=== PATIENT | male | born 1950 | race Caucasian/White ===

== ENCOUNTER 2017-09-19 20:34 | Observation (INO) ==
[2017-09-19] MEDS ORDERED: Aspirin 81 MG TAB.CHEW PO ONE (21:24)
[2017-09-19] MEDS ORDERED: Nitroglycerin 0.4 MG TAB.SUBL SL ONE (21:24)
--- NOTE | 2017-09-19 21:31 | Emergency Department Note ---
Disposition Clinical Impression: Palpitations Chest pain Qualifiers: Chest pain type: precordial pain Qualified Code(s): R07.2 - Precordial pain Disposition: Admitted As Inpatient Condition: Good Time of Disposition: 23:04 General Adult HPI - General Chief complaint: ED Arrhythmia/Palpitations Stated complaint: "Chest Tightness/Feels Like Heart Skipping Beat" Time Seen by Provider: 09/19/17 20:59 Source: patient Limitations: no limitations Nursing Notes Reviewed: Yes Vital Signs Reviewed: Yes - History of Present Illness HPI Narrative: 67-year-old male presenting to the emergency department with chief complaint of palpitations and chest pain. Patient states today around 3:00 while he was driving his car he started feeling palpitations. He states he felt a pressure in his chest. It did not radiate. It was substernal. He did not get nauseous he did not vomit or have diaphoresis. Patient states in the he had palpitations and had a stress test which was within normal limits. He has not followed up with cardiology since. Patient does state he has hypertension. Patient states he has no other significant medical conditions. Patient states he is having 1 out of 10 pain at this time. Pain Scale: 2 - Related Data Home Medications Medication Instructions Recorded Confirmed Centrum Silver Tablet 12/29/16 Ibuprofen 12/29/16 Previous Rx's Medication Instructions Recorded Azithromycin [Zithromax] 1 applic PO DAILY #6 tablet 12/29/16 Allergies Allergy/AdvReac Type Severity Reaction Status Date / Time Penicillins [PCN] Allergy Rash Verified 09/19/17 20:56 All systems ED: reviewed and negative except as stated. Constitutional: Denies: fever, chills, weakness Eyes: Reports: as per HPI ENT ED: Reports: as per HPI Cardiovascular: Reports: chest pain, palpitations Respiratory: Denies: cough, dyspnea, wheezes Gastrointestinal: Denies: abdominal pain, nausea, vomiting Genitourinary: Reports: as per HPI Musculoskeletal: Reports: as per HPI Integumentary: Denies: rash, abrasion, lesions Neurological: Reports: as per HPI Psychiatric: Reports: as per HPI Endocrine: Reports: as per HPI Hematological/Lymphatic: Reports: as per HPI Allergic/Immunologic: Reports: as per HPI Past Medical History - Past Medical History Attestation: Yes The following information was validated with the patient. Medical history: Reports: hypertension, other Psychiatric history: Reports: no psych history - Social History Smoking Status: Current every day smoker Smokeless Tobacco Status: No Alcohol use: Reports: occasionally Drug use: Reports: none Physical Exam - General Limitations: no limitations General appearance: alert, in no apparent distress - Head Head exam: atraumatic, normocephalic, normal inspection - Eye Eye exam: Present: normal appearance. Absent: scleral icterus, conjunctival injection - Chest Chest inspection: Present: normal inspection, symmetric chest wall rise. Absent : tenderness, rash - Respiratory Respiratory exam: Present: normal lung sounds bilaterally. Absent: respiratory distress, wheezes, stridor - Cardiovascular Cardiovascular exam: Present: regular rate, normal rhythm, normal heart sounds - Abdominal Exam Abdominal exam: Present: soft, Non-Tender. Absent: distention, guarding, rebound - Extremities Exam Extremities exam: Present: normal inspection, full ROM - Neurological Exam Neurological exam: Present: alert, oriented X3 - Psychiatric Psychiatric exam: Present: normal affect, normal mood - Skin Skin exam: Present: warm, intact Course Course Narrative: 67-year-old male presenting to the emergency department complaining of chest pain. He also states he is having palpitations. On EKG he does have PVCs. Patient's chest pain now 1 out of 10. Last workup was in the . He does have hypertension. Heart score greater than 3 at this time. Patient alert and oriented 3 in the room and stable vital signs at this time. We will perform a chest pain rule out including EKG, troponin and chest x-ray. Patient agreed to this plan. Disposition pending results. Vital Signs Temperature 98.5 F 09/19/17 20:51 Pulse Rate 70 09/19/17 20:51 Respiratory Rate 16 09/19/17 20:51 Blood Pressure 145/88 09/19/17 20:51 O2 Sat by Pulse Oximetry 96 09/19/17 20:51 Temperature 98.1 F 09/19/17 23:18 Pulse Rate 67 09/19/17 22:42 Respiratory Rate 18 09/19/17 23:18 Blood Pressure 116/81 09/19/17 23:18 O2 Sat by Pulse Oximetry 99 09/19/17 22:42 Oxygen Delivery Oxygen Delivery Nasal Cannula Medical Decision Making - Lab Data Result diagrams: 09/19/17 21:58 09/19/17 21:58 Lab Results 09/19/17 09/19/17 09/19/17 Range/Units 21:58 21:58 21:58 WBC 8.7 (4.3-11.1) K/mcL RBC 4.10 L (4.19-5.50) M/mcL Hgb 13.2 (12.9-16.9) g/dL Hct 39.2 (37.5-50.1) % MCV 95.6 (83.0-100.0) fL MCH 32.2 (28.0-33.3) pg MCHC 33.7 (31.6-35.5) g/dL RDW 12.5 (11.5-14.5) % Plt Count 326 (140-400) K/mcL MPV 8.4 L (9.4-12.4) fL Immature Gran % 0.3 (0-4) % Seg Neutrophils % 53.8 % Lymphocytes % 30.9 % Monocytes % 10.7 % Eosinophils % 3.6 % Basophils % 0.7 % Neutrophils # 4.7 (1.6-8.9) K/mcL Lymphocytes # 2.7 (0.6-4.6) K/mcL Monocytes # 0.9 (0.0-1.3) K/mcL Eosinophils # 0.3 (0.0-0.6) K/mcL Basophils # 0.1 (0.0-0.2) K/mcL PT 11.3 (9.4-12.1) Seconds INR 1.1 Sodium 132 L (136-145) mEq/L Potassium 4.3 (3.5-4.5) mEq/L Chloride 99 (98-109) mEq/L Carbon Dioxide 27 (19-29) mEq/L BUN 12 (8-26) mg/dL Creatinine 0.93 (0.72-1.25) mg/dL Est GFR ( Amer) > 60 (> 60) Est GFR (Non-Af Amer) > 60 (> 60) BUN/Creatinine Ratio 13 (6-26) Glucose 100 H (70-99) mg/dL Calculated Osmolality 274 L (280-300) Calcium 9.7 (8.6-10.8) mg/dL Troponin I (0-0.03) ng/mL 09/19/17 Range/Units 21:58 WBC (4.3-11.1) K/mcL RBC (4.19-5.50) M/mcL Hgb (12.9-16.9) g/dL Hct (37.5-50.1) % MCV (83.0-100.0) fL MCH (28.0-33.3) pg MCHC (31.6-35.5) g/dL RDW (11.5-14.5) % Plt Count (140-400) K/mcL MPV (9.4-12.4) fL Immature Gran % (0-4) % Seg Neutrophils % % Lymphocytes % % Monocytes % % Eosinophils % % Basophils % % Neutrophils # (1.6-8.9) K/mcL Lymphocytes # (0.6-4.6) K/mcL Monocytes # (0.0-1.3) K/mcL Eosinophils # (0.0-0.6) K/mcL Basophils # (0.0-0.2) K/mcL PT (9.4-12.1) Seconds INR Sodium (136-145) mEq/L Potassium (3.5-4.5) mEq/L Chloride (98-109) mEq/L Carbon Dioxide (19-29) mEq/L BUN (8-26) mg/dL Creatinine (0.72-1.25) mg/dL Est GFR ( Amer) (> 60) Est GFR (Non-Af Amer) (> 60) BUN/Creatinine Ratio (6-26) Glucose (70-99) mg/dL Calculated Osmolality (280-300) Calcium (8.6-10.8) mg/dL Troponin I 0.01 (0-0.03) ng/mL - EKG Data EKG #1 EKG attestation: Yes I reviewed and interpreted this EKG. EKG results narrative: Sinus rhythm with occasional PVCs. 75 bpm. Normal axis. AR interval 187, QRS 84, QTC 390. Atrial enlargement, right ventricular conduction delay, nonspecific T-wave changes. No previous EKG to compare Attestation Statement - Attestation Attestation: I examined this patient and my medical decision-making was reviewed with the Resident Physician. I agree with the documented findings, disposition and treatment plan as described except to the extent set forth below. 67-year-old male presents ED because of chest pain. Over the past couple weeks he has had periods of chest discomfort which she describes as a substernal tightness. This is becoming more frequent and more intense lasting longer periods of time. Today, at 7 PM, he had onset of the same discomfort that lasted for about 30 minutes. This was associated with palpitations and dyspnea. Symptoms resolved upon arrival to the ED. Denies exertional provocation of symptoms. He also admits that he does not exert himself much at all. Denies fevers or chills. No weight loss. Well-appearing male in no apparent distress. Neck is Supple. Chest is clear to auscultation bilaterally. Cardiac exam regular without rubs or gallops. Chest wall nontender. Abdomen soft nondistended nontender. Shoulder is warm and dry. No edema. EKG with occasional PVCs but no other acute ischemic abdomen especially. Initial labs are unremarkable with normal troponin. Given the escalation of his symptoms with increased frequency and increased intensity of the chest discomfort, he will be admitted for further evaluation and workup.
[2017-09-19 22:08] LABS: Basophils # 0.1 K/mcL (0.0-0.2); Basophils % 0.7 %; Eosinophils # 0.3 K/mcL (0.0-0.6); Eosinophils % 3.6 %; Hematocrit 39.2 % (37.5-50.1); Hemoglobin 13.2 g/dL (12.9-16.9); INR 1.1; Immature Granulocytes % 0.3 % (0-4); Lymphocytes # 2.7 K/mcL (0.6-4.6); Lymphocytes % 30.9 %; Mean Corpuscular HGB Conc 33.7 g/dL (31.6-35.5); Mean Corpuscular Hemoglobin 32.2 pg (28.0-33.3); Mean Corpuscular Volume 95.6 fL (83.0-100.0); Mean Platelet Volume 8.4 fL (9.4-12.4); Monocytes # 0.9 K/mcL (0.0-1.3); Monocytes % 10.7 %; Neutrophils # 4.7 K/mcL (1.6-8.9); Platelet Count 326 K/mcL (140-400); Prothrombin Time 11.3 Seconds (9.4-12.1); Red Cell Distribution Width 12.5 % (11.5-14.5); Segmented Neutrophils % 53.8 %
[2017-09-19 22:15] LABS: BUN/Creatinine Ratio 13 (6-26); Blood Urea Nitrogen 12 mg/dL (8-26); Calcium 9.7 mg/dL (8.6-10.8); Carbon Dioxide 27 mEq/L (19-29); Chloride 99 mEq/L (98-109); Glucose 100 mg/dL (70-99); Osmolality,Calculated 274 (280-300); Potassium 4.3 mEq/L (3.5-4.5); Sodium 132 mEq/L (136-145); eGFR For African Americans > 60 (> 60); eGFR For Non-African Americans > 60 (> 60)
--- NOTE | 2017-09-20 | Internal Med History&Physical ---
Date of Encounter: 09/20/17 Time of Encounter: 23:51 Assessment and Plan (1) Atypical chest pain Current visit: Yes Status: Acute EKG - sinus rhythm with PVCs, no ischemic changes Trop neg and will trend Cardiac monitoring History of stress testing in mid and was otherwise benign Lower third substernal chest "squeezing" still present on evaluation PPI therapy ASA Cardiac risk factors - Smoking and HTN, relatively low risk at this time Recommend execise stress testing inpatient vs outpatient pending continuation of negative trop and no EKG changes on telemetry (2) Palpitations Current visit: Yes Status: Acute See above (3) HTN (hypertension) Current visit: Yes Status: Chronic Blood pressure appears stable at this time. Restarting home meds - Amlodipine 5mg Qualifiers: Hypertension type: essential hypertension Qualified Code(s): I10 - Essential (primary) hypertension (4) Tobacco abuse Current visit: Yes Status: Chronic Smokes 1 PPD for 50 years. Nicotine Patch offered and declined. (5) Tobacco abuse counseling Current visit: Yes Status: Acute Discussed smoking cessations options and patient declined any interventions at this time. Internal Medicine - H&P: HPI Chief complaint: chest pain Admitted From: Home Plans for Post Hospital Care: Home History of present illness: Mr. Gordon is a very pleasant 67 year old male with a past medical history of hypertension who presents to the [facility] Emergency Department with a chief complaint of lower one third sub-sternal chest pain. He reports that at approximately [address] was [address] and started experiencing non-radiating chest pain that is "squeezing" in nature. The intensity is 1/10 and constant. He goes on to state that he has been having this pain at a lower intensity for 2-3 weeks and has been progressively worsening. He states the pain occurs during ambulation, at rest and sometimes postprandial. There is associated shortness of breath, palpitations and "skipped beats". He denies any n/v, diaphoresis, CAMEJO, fever or chest wall tenderness. Additionally, he has been seen by his PCP one week ago and treated with antibiotics for a snius infection that is slowly improving. On arrival to the ED, vital signs stable, trop neg, Cr normal, CXR neg and Na 132. EKG shows sinus rhythm with PVCs present, which is unchanged from previous. No ischemic changes seen. On evaluation, he reports "skipped beats" over 20 years ago and had a stress test in the mid that was benign. Since then, there has been no cardiac workup or complaint until today. He smokes 1 PPD for 50 years and drinks 2 beers per day. He is retired and states he not very active, though can walk up a flight of stairs daily with minimal SOB. No significant family medical history. We will admit patient to for further workup and management. Past Med Surg Social Fam HX - Past Medical History Medical history: hypertension, other Psychiatric history: no psych history - Social History Smoking Status: Current every day smoker Smokeless Tobacco Status: No Alcohol use: occasionally Drug use: none Internal Medicine - H&P: Meds Azithromycin [Zithromax] 1 applic PO DAILY #6 tablet 12/29/16 [Rx] Centrum Silver Tablet 12/29/16 [History] Ibuprofen 12/29/16 [History] 3 Allergy/AdvReac Type Severity Reaction Status Date / Time Penicillins [PCN] Allergy Rash Verified 09/19/17 20:56 All Systems PM: A 10-system review of systems was performed and is negative for pertinent findings except as documented above in the HPI. - Constitutional Constitutional: no fever(s) - EENT Eyes: no blurry vision - Cardiovascular Cardiovascular ROS IM: as per HPI - Respiratory Respiratory: no cough - Gastrointestinal Gastrointestinal: no abdominal pain, no constipation, no diarrhea - Genitourinary Genitourinary ROS male: no dysuria - Musculoskeletal Musculoskeletal ROS IM: back pain - Integumentary Integumentary IM: no erythema - Neurological Neurological ROS: no dizziness, no weakness - Psychiatric Psychiatric: no mood swings - Constitutional Vitals: Temp Pulse Resp BP Pulse Ox 98.1 F 67 18 116/81 99 09/19/17 23:18 09/19/17 22:42 09/19/17 23:18 09/19/17 23:18 09/19/17 22:42 General appearance: Present: A&O X 3, no acute distress - Head Head exam: Present: atraumatic, normocephalic - Eye Eye exam: Present: EOMI, conjuntiva pink, sclera anicteric - ENT ENT exam: Present: mucous membranes moist - Neck Neck exam general surgery: Present: supple, trachea midline - Respiratory Respiratory exam: Present: CTAB. Absent: rales, rhonchi, wheezes - Cardiovascular Cardiovascular exam: Present: RRR, +S1, +S2 - GI/Abdominal GI/Abdominal exam: Present: normal bowel sounds, soft. Absent: distended, guarding, tenderness - Rectal Rectal exam: Present: deferred - Extremities Exam Extremities exam: Present: warm. Absent: calf tenderness, cyanotic, pedal edema , tenderness - Neurological Exam Neurological exam: Present: alert, oriented X3, no focal deficits. Absent: speech deficit - Psychiatric Psychiatric exam: Present: normal affect, normal mood - Skin Skin exam: Present: dry, warm. Absent: cyanosis, diaphoretic Internal Med - H&P Results - Labs CBC & Chem 7: 09/19/17 21:58 09/19/17 21:58
[2017-09-20] MEDS ORDERED: Acetaminophen 325 MG TABLET PO PRN (00:26)
[2017-09-20] MEDS ORDERED: Naloxone 0.4 MG/ML INJ IVP PRN (00:26)
--- NOTE | 2017-09-20 00:35 | Event Note ---
Date of Encounter: 09/20/17 Time of Encounter: 00:35 Patient seen and examined with medical psychotherapist. Agree with assessment and plan
[2017-09-20] MEDS ORDERED: Regadenoson 0.4 MG/5 ML SYRINGE IVP ONE (08:14)
[2017-09-20] MEDS: Aspirin Enteric Coated 81 MG Tablet PO SCH (12:12)
[2017-09-20] MEDS: amLODIPine 5 MG TABLET PO SCH (12:12)
--- NOTE | 2017-09-20 14:33 | Discharge Summary ---
Date of Encounter: 09/20/17 Time of Encounter: 14:31 - Discharge Diagnosis (1) Chest pain Priority: Primary Status: Acute Comments: Presented with transient episode of chest pain that started day of presentation. Resolved spontaneously and without intervention. Serial troponin negative, EKG without acute ST changes. Stress test negative for ischemia or infarct. Smoking cessation advised. Continue home ASA. Recommend follow-up with PCP within 1-2 weeks. Qualifiers: Chest pain type: unspecified Qualified Code(s): R07.9 - Chest pain, unspecified (2) HTN (hypertension) Priority: Primary Status: Chronic Comments: per hx. BP controlled. Continue home BP medications. Qualifiers: Hypertension type: essential hypertension Qualified Code(s): I10 - Essential (primary) hypertension (3) Tobacco abuse Priority: Primary Status: Chronic Comments: Current smoker; cessation advised. (4) COPD exacerbation Priority: Primary Status: Acute Comments: Suspected. With productive cough and wheezing on exam. Start azithromycin, steroid burst. - Discharge Medications Prescriptions: amLODIPine [Norvasc] 5 mg PO DAILY #30 tablet Aspirin Enteric Coated [Aspirin EC] 81 mg PO DAILY #30 tablet. Azithromycin [Azithromycin 6-Tab Pack] 250 mg PO PER PKG DI #6 tab Home Medications: Multivit-Min/FA/Lycopen/Lutein [Centrum Silver Tablet] 1 tab PO DAILY 12/29/16 [ History] Aspirin Enteric Coated [Aspirin EC] 81 mg PO DAILY #30 tablet. 09/20/17 [Rx] Azithromycin [Azithromycin 6-Tab Pack] 250 mg PO PER PKG DI #6 tab 09/20/17 [Rx] amLODIPine [Norvasc] 5 mg PO DAILY #30 tablet 09/20/17 [Rx] Allergies/Adverse Reactions: 3 Allergy/AdvReac Type Severity Reaction Status Date / Time Penicillins [PCN] Allergy Rash Verified 09/19/17 20:56 Procedures/tests Complete & Pending: Procedures Performed prior 72 hours Category Date Time Status NM saeid perf SPECT multi [NM] Routine Exams 09/20/17 07:52 Taken SP pharm nuclear stress Routine Y 09/20/17 07:52 Completed Date of admission: 09/19/17 23:08 Primary care physician: Margarette Fajardo, REGIONAL REHABILITATION DIRECTOR Discharging clinician: Melodie Moya Anticipated date of discharge: 09/20/17 - Patient Status Disposition: Home, Self-Care Condition: Good Functional capacity at discharge: independent ambulation Overall status at discharge: patient is back to baseline - Discharge Instructions Instructions: Chronic Obstructive Pulmonary Disease (DC), How to Stop Smoking ( DC) Follow Up With: Margarette Fajardo, REGIONAL REHABILITATION DIRECTOR [Primary Care Provider] - - Diet and Activity Activity: increase activity as tolerated Diet: advance to your usual diet Interval History: Seen and examined at bedside. Information obtained from chart review and patient report. Patient says his back to baseline and would like to discharge home today. Reports an episode of chest tightness while driving that resolved spontaneously without intervention. No known CAD. He reports recently being prescribed an antibiotic for a chest cold. Complains of intermittent productive cough, no fevers or chills. No chest pain or shortness of breath on my exam. Hospital course: Mr. Gordon is a 67 year old male - Time Spent with Patient Total time spent providing and/or coordinating discharge services: - Constitutional Vitals: Temp Pulse Resp BP Pulse Ox 97.9 F 82 16 107/83 94 09/20/17 11:53 09/20/17 11:53 09/20/17 11:53 09/20/17 11:53 09/20/17 11:53 General appearance: Present: A&O X 3, no acute distress - Head Head exam: Present: atraumatic, normocephalic - Eye Eye exam: Present: PERRL, conjuntiva pink, sclera anicteric Pupils: Present: PERRL - Neck Neck exam general surgery: Present: supple, trachea midline. Absent: lymphadenopathy - Respiratory Respiratory exam: Present: CTAB, rhonchi. Absent: accessory muscle use, rales, wheezes - Cardiovascular Cardiovascular exam: Present: RRR, +S1, +S2. Absent: diastolic murmur, gallop, rubs, systolic murmur - GI/Abdominal GI/Abdominal exam: Present: normal bowel sounds, soft, no peritoneal signs. Absent: distended, tenderness - Extremities Exam Extremities exam: Present: warm, radial pulses palpable and symmetrical. Absent : calf tenderness, cyanotic, pedal edema - Neurological Exam Neurological exam: Present: CN II-XII intact, oriented X3, no focal deficits. Absent: pronater drift, facial droop, speech deficit - Skin Skin exam: Present: dry, intact
[2017-09-20] MEDS ORDERED: Azithromycin 500 MG in D5% in Water 250 ML IVPB SCH (15:00)
[2017-09-20] MEDS: predniSONE 20 MG TABLET PO SCH (15:47)
[2017-09-21] MEDS: Aspirin Enteric Coated 81 MG Tablet PO SCH (08:24)
[2017-09-21] MEDS: predniSONE 20 MG TABLET PO SCH (08:24)
[2017-09-21] MEDS: amLODIPine 5 MG TABLET PO SCH (08:24)
[2017-09-21 08:27] LABS: Hematocrit 39.8 % (37.5-50.1); Hemoglobin 13.3 g/dL (12.9-16.9); Mean Corpuscular HGB Conc 33.4 g/dL (31.6-35.5); Mean Corpuscular Hemoglobin 32.3 pg (28.0-33.3); Mean Corpuscular Volume 96.6 fL (83.0-100.0); Mean Platelet Volume 8.6 fL (9.4-12.4); Platelet Count 305 K/mcL (140-400); Red Blood Count 4.12 M/mcL (4.19-5.50); Red Cell Distribution Width 12.5 % (11.5-14.5)
[2017-09-21 08:42] LABS: BUN/Creatinine Ratio 16 (6-26); Blood Urea Nitrogen 13 mg/dL (8-26); Calcium 8.9 mg/dL (8.6-10.8); Carbon Dioxide 25 mEq/L (19-29); Chloride 102 mEq/L (98-109); Glucose 102 mg/dL (70-99); Magnesium 2.1 mg/dL (1.6-2.6); Osmolality,Calculated 278 (280-300); Potassium 4.3 mEq/L (3.5-4.5); Sodium 134 mEq/L (136-145); eGFR For African Americans > 60 (> 60); eGFR For Non-African Americans > 60 (> 60)
--- NOTE | 2017-09-21 10:50 | Cardiology Consult Note ---
Addendum entered and electronically signed by Villa Glaser CNP 09/21/17 10:58 : TTE completed. Preserved EF. No significant valvular disease seen. No indication for further cardiac testing. Metoprolol started for bigemeny. No bradycardia seen in telemetry. Dr. Chris Estrada will see patient today prior to discharge to review. Out-pt f/u will be coordinated in 2-3 weeks with [facility]. Original Note: <Villa Glaser - Last Filed: 09/21/17 10:40> Date of Encounter: 09/21/17 Time of Encounter: 10:00 Assessment and Plan (1) Palpitations Current Visit: Yes Status: Acute Telemetry shows occasional PVC. Occasional short episodes of bigemeny. TTE pending. Stress test was negative. Recommend adding low dose beta-amado. If no abnormal finding on TTE suspect no further inpatient cardiac testing. (2) Chest pain Current Visit: Yes Status: Acute Atypical chest pain. Reports pain similar to when he had gastritis in the past. Consider GI eval. Troponin negative x3. EKG shows no acute changes. Stress test was negative for ischemia. Gated EF 70%. TTE pending. Qualifiers: Chest pain type: unspecified Qualified Code(s): R07.9 - Chest pain, unspecified Discussion w patient/family: The assessment and plan as outlined above was discussed with the patient and/or family members who expressed understanding and agreement. All questions were answered. Thank you for involving us in the care of your patient. Please call with any questions. History of Present Illness Consult date: 09/21/17 Requesting physician: Melodie Moya Consult reason: bigemeny, bradycardia Chief complaint: palpitations, chest discomfort History of present illness: Mr. Gordon is a 67 year old male with a history of HTN and tobacco use who presented with the c/o palpitations and mid-epigastric to lower chest wall tightness. His symptoms started while he was driving. He decided to go to the ER. Prior to being checked in his symptoms did resolve. He associated his discomfort with palpitations. He c/o intermittent palpitations over the past several months. Palpitations lasting for less than a minute at a time. He states that he thinks it is from drinking to much coffee. He drinks up to six cups a day. Cardiac work-up included negative cardiac enzymes. EKG showed Sr with no acute ST changes. He underwent pharmacologic stress test during his stay that was found to be negative. Gated EF 70%. Cardiology consulted for bigemeny and bradycardia seen on telemetry. He denies recurrent chest pain. Denies dizziness or syncope. Denies orthopnea, PND, or edema. Past Med Surg Social Fam HX - Past Medical History Medical history: hypertension, other Psychiatric history: no psych history - Social History Smoking Status: Current every day smoker Packs per day: 1 Smokeless Tobacco Status: No Alcohol use: occasionally Drug use: none - Family History Father Adopted: No Living Status: Age at : 85 Hx Family Cardiac Disorders: Yes ([place]) Mother Adopted: No Living Status: Hx Family Cancer: Yes (lung) Medications and Allergies Multivit-Min/FA/Lycopen/Lutein [Centrum Silver Tablet] 1 tab PO DAILY 12/29/16 [ History] Aspirin Enteric Coated [Aspirin EC] 81 mg PO DAILY #30 tablet. 09/20/17 [Rx] Azithromycin [Azithromycin 6-Tab Pack] 250 mg PO PER PKG DI #6 tab 09/20/17 [Rx] Metoprolol [Lopressor] 25 mg PO BID #60 tablet 09/21/17 [Rx] predniSONE [PredniSONE] 40 mg PO DAILY #8 tablet 09/21/17 [Rx] 3 Allergy/AdvReac Type Severity Reaction Status Date / Time Penicillins [PCN] Allergy Rash Verified 09/19/17 20:56 ROS unobtainable: due to endotracheal tube All Systems Review: A 10-system review of systems was performed and is negative for pertinent findings except as documented above in the HPI. Physical Examination Vital Signs, Last 4 Hours Temp Pulse Resp BP Pulse Ox 09/21/17 07:27 98.1 F 83 16 138/87 96 General: Conversant, No Apparent Distress HEENT: Atraumatic, Normocephaly, Mucus Membranes Moist Neck: No JVD, Normal carotid pulses Cardiac: Reg Rate and Rhythm, Normal S1 and S2, No Murmur Lungs: Normal Breath Sounds, No Wheeze, Rales, Rhonchi Neuro: Alert and responsive, No focal deficits noted Abdomen: Soft, Non-Tender Skin: No rashes noted on visualized skin Musculoskeletal: No Chest Wall Tenderness Extremities: No Clubbing, No Cyanosis, No Edema, Normal Pulses Results 09/21/17 08:03 09/21/17 08:03 Lab Results 09/20/17 09/20/17 09/21/17 12:26 16:09 08:03 WBC 12.6 H Hgb 13.3 Hct 39.8 Plt Count 305 Sodium Potassium Chloride Carbon Dioxide BUN Creatinine Glucose Calcium Magnesium 2.2 Troponin I 0.01 09/21/17 08:03 WBC Hgb Hct Plt Count Sodium 134 L Potassium 4.3 Chloride 102 Carbon Dioxide 25 BUN 13 Creatinine 0.83 Glucose 102 H Calcium 8.9 Magnesium 2.1 Troponin I - Imaging and Cardiology Echo: pending - EKG Interpretation EKG results cardiology: personally reviewed Consult Discharge Plan - Plan Instructions: Metoprolol (By mouth), Palpitations (DC), How to Stop Smoking (DC ), Chronic Obstructive Pulmonary Disease (DC) Referrals: Margarette Fajardo, MATHEMATICS TECHNICIAN [Primary Care Provider] - 09/29/17 10:30 am Prescriptions: Aspirin Enteric Coated [Aspirin EC] 81 mg PO DAILY #30 tablet. Azithromycin [Azithromycin 6-Tab Pack] 250 mg PO PER PKG DI #6 tab Metoprolol [Lopressor] 25 mg PO BID #60 tablet predniSONE [PredniSONE] 40 mg PO DAILY #8 tablet <Chris Estrada - Last Filed: 09/21/17 16:54> Date of Encounter: 09/21/17 - Attending Attestation I have personally performed a face to face evaluation on this patient. I have reviewed and agree with the care plan. History and Exam by me shows: PVCs, otherwise normal cardiac w/u. Agree with bblocker treatment. Can fu as outpt. ( Pt. left prior to my seeing him) Assessment and Plan Discussion w patient/family: The assessment and plan as outlined above was discussed with the patient and/or family members who expressed understanding and agreement. All questions were answered. Thank you for involving us in the care of your patient. Please call with any questions. History of Present Illness History of present illness: Mr. Gordon is a 67 year old male All Systems Review: A 10-system review of systems was performed and is negative for pertinent findings except as documented above in the HPI. Physical Examination Vital Signs, Last 4 Hours Temp Pulse Resp BP Pulse Ox 09/21/17 16:32 98.2 F 66 16 135/82 98 Results 09/21/17 08:03 09/21/17 08:03 Lab Results 09/20/17 09/21/17 09/21/17 16:09 08:03 08:03 WBC 12.6 H Hgb 13.3 Hct 39.8 Plt Count 305 Sodium 134 L Potassium 4.3 Chloride 102 Carbon Dioxide 25 BUN 13 Creatinine 0.83 Glucose 102 H Calcium 8.9 Magnesium 2.2 2.1
--- NOTE | 2017-09-21 11:46 | Discharge Summary ---
Date of Encounter: 09/21/17 Time of Encounter: 11:43 - Discharge Diagnosis (1) Chest pain Priority: Primary Status: Resolved Comments: Presented with transient episode of chest pain that started day of presentation. Resolved spontaneously and without intervention. Serial troponin negative, EKG without acute ST changes. Stress test negative for ischemia or infarct. Smoking cessation advised. Continue home ASA. Recommend follow-up with PCP within 1-2 weeks. Qualifiers: Chest pain type: unspecified Qualified Code(s): R07.9 - Chest pain, unspecified (2) Palpitations Priority: Primary Status: Acute Comments: Telemetry shows occasional PVC. Occasional short episodes of bigemeny. TTE with EF 60%, normal systolic function, mild diastolic dysfunction. Evaluated by Cardiology who recommended starting BB. Recommend follow-up with PCP within 1- 2 weeks. (3) HTN (hypertension) Priority: Primary Status: Acute Comments: per hx but not on BP medication at home. BB started as noted above. Recommend follow-up with PCP for BP recheck in 1 week Qualifiers: Hypertension type: essential hypertension Qualified Code(s): I10 - Essential (primary) hypertension (4) COPD exacerbation Priority: Primary Status: Acute Comments: Suspected. With productive cough and wheezing on exam. Start azithromycin, steroid burst. (5) Tobacco abuse Priority: Primary Status: Chronic Comments: Current smoker; cessation advised. - Discharge Medications Prescriptions: Aspirin Enteric Coated [Aspirin EC] 81 mg PO DAILY #30 tablet. Azithromycin [Azithromycin 6-Tab Pack] 250 mg PO PER PKG DI #6 tab Metoprolol [Lopressor] 25 mg PO BID #60 tablet predniSONE [PredniSONE] 40 mg PO DAILY #8 tablet Home Medications: Multivit-Min/FA/Lycopen/Lutein [Centrum Silver Tablet] 1 tab PO DAILY 12/29/16 [ History] Aspirin Enteric Coated [Aspirin EC] 81 mg PO DAILY #30 tablet. 09/20/17 [Rx] Azithromycin [Azithromycin 6-Tab Pack] 250 mg PO PER PKG DI #6 tab 09/20/17 [Rx] Metoprolol [Lopressor] 25 mg PO BID #60 tablet 09/21/17 [Rx] predniSONE [PredniSONE] 40 mg PO DAILY #8 tablet 09/21/17 [Rx] Allergies/Adverse Reactions: 3 Allergy/AdvReac Type Severity Reaction Status Date / Time Penicillins [PCN] Allergy Rash Verified 09/19/17 20:56 Procedures/tests Complete & Pending: Procedures Performed prior 72 hours Category Date Time Status NM saeid perf SPECT multi [NM] Routine Exams 09/20/17 07:52 Taken ECG 12 lead ECG [ECG] Routine Y 09/20/17 15:54 Completed EV echocardiogram Routine Y 09/20/17 14:48 Completed SP pharm nuclear stress Routine Y 09/20/17 07:52 Completed Date of admission: 09/19/17 23:08 Primary care physician: Margarette Fajardo CNP Consults: 09/20/17 15:53 Consult to Cardiology [CONS] Routine Comment: Consulting Provider: Cardiology Roseline Reason for Consult: patient is running long periods of time in bigeminy, bradycardia. Melodie DUDLEY contacting Pj DUDLEY. Call Completed: No Discharging clinician: Melodie Moya Anticipated date of discharge: 09/21/17 - Patient Status Disposition: Home, Self-Care Condition: Good Functional capacity at discharge: independent ambulation Overall status at discharge: patient is back to baseline - Discharge Instructions Instructions: How to Stop Smoking (DC), Chronic Obstructive Pulmonary Disease ( DC), Palpitations (DC), Metoprolol (By mouth) Follow Up With: Margarette Fajardo CNP [Primary Care Provider] - - Diet and Activity Activity: increase activity as tolerated Diet: advance to your usual diet Interval History: Seen and examined at bedside. Says he feels better to go home today. Says he has occasional palpitations otherwise asymptomatic from PVCs and bigeminy. Strongly encouraged smoking cessation. Besides wanting to go home, he has no complaints. - Time Spent with Patient Total time spent providing and/or coordinating discharge services: - Constitutional Vitals: Temp Pulse Resp BP Pulse Ox 98.1 F 81 16 135/90 99 09/21/17 11:30 09/21/17 11:30 09/21/17 11:30 09/21/17 11:30 09/21/17 11:30 General appearance: Present: A&O X 3, no acute distress - Head Head exam: Present: atraumatic, normocephalic - Eye Eye exam: Present: PERRL, conjuntiva pink, sclera anicteric Pupils: Present: PERRL - Neck Neck exam general surgery: Present: supple, trachea midline. Absent: lymphadenopathy - Respiratory Respiratory exam: Present: CTAB. Absent: accessory muscle use, rales, rhonchi, wheezes - Cardiovascular Cardiovascular exam: Present: RRR, +S1, +S2. Absent: diastolic murmur, gallop, rubs, systolic murmur - GI/Abdominal GI/Abdominal exam: Present: normal bowel sounds, soft, no peritoneal signs. Absent: distended, tenderness - Extremities Exam Extremities exam: Present: warm, radial pulses palpable and symmetrical. Absent : calf tenderness, cyanotic, pedal edema - Neurological Exam Neurological exam: Present: CN II-XII intact, oriented X3, no focal deficits. Absent: pronater drift, facial droop, speech deficit - Skin Skin exam: Present: dry, intact
[2017-09-21 16:33] VITALS: BP 135/82
--- NOTE | 2017-09-22 15:54 | Electrocardiograph Report ---
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
--- NOTE | 2017-09-22 16:20 | Electrocardiograph Report ---
[address] [place], [place] [address] Test Date: 2017-09-20 Pat Name: Gianluca Gordon Department: 113 Room: 3B16 Gender: M Tile Layer: : 1950 Requested By: Melodie Moya Order Number: [id number] Reading MD: Chris Estrada Measurements Intervals [place] Rate: 82 P: 76 [place]: 196 QRS: 61 QRSD: 82 T: 65 QT: 374 QTc: 413 Interpretive Statements SINUS RHYTHM WITH FREQUENT VENTRICULAR PREMATURE COMPLEXES IN A BIGEMINAL PATTERN POSSIBLE LEFT ATRIAL ENLARGEMENT POSSIBLE RIGHT VENTRICULAR CONDUCTION DELAY SEPTAL MYOCARDIAL INFARCTION, OF INDETERMINATE AGE Electronically Signed On 09-22-2017 16:18:54 EST by Chris Estrada
== END 2017-09-21 17:48 | disposition home or self-care (01) ==
LOC: EMEROO 20:34 → 3BNU 20:34
PROVIDERS: ADMIT Pediatrics; ATTEND Registered Nurse